=== PATIENT | female | born 2000 | race Two or more races ===

== ENCOUNTER 2024-08-18 23:16 | Emergency (ER) | payer BC, SELFPAY ==
[2024-08-18 23:26] VITALS: BP 132/84; PULSE 93; RESP 19; TEMP 36.7; O2SAT 97; BMI 44.6
--- NOTE | 2024-08-19 00:11 | PD.EDALLER ---
ED Allergic Reaction RME/HPI General Chief complaint: Allergic Reaction Stated complaint: Allergic reaction Time Seen by Provider: 08/18/24 23:36 Arrival date/time: 08/18/24 23:16 23 year old female present to emergency room with c/o of hives like rash upper, face and ears today. pt unsure of cause reaction. denies any new plants, animals, clothes, detergent , medication LOCATION: upper arm SEVERITY: Symptoms are described as being severe with limitations on activities of daily living QUALITY: Symptoms are described as being dull or achy CONTEXT: The patient is unable to identify any inciting events. DURATION/TIMING: The symptoms started approximately one day ago and have been constant this then, and have been progressive getting worse. ASSOCIATED SYMPTOMS: The patient is unable to identify any other associated symptoms. MODIFYING FACTORS: The patient is unable to identify any alleviating or aggravating symptoms. PERTINENT ROS: denies IVDU, states no immunocompromising condition, denies any penetrating trauma, no fever, no unexplained nausea or vomiting, no headache, no chest pain REVIEW OF SYSTEMS: See History of Present Illness - with the exception of those mentioned in the history of present illness, all other systems reviewed and reported as negative GENERAL: In general the patient is awake, interactive, in an emergency department gurney. HEAD/EYES/EARS/NOSE/THROAT: normo-cephalic, atraumatic, mucus membranes are moist, anicteric, palpebral conjunctiva is pink, trachea is midline. CARDIOVASCULAR: regular rate and regular rhythm, no murmurs, heart sounds are not distant, strong pulses in all four extremities that are equal and symmetric bilateral upper and lower extremities, normal capillary refill. CHEST/PULMONARY: normal chest rise and fall, good air movement, clear to auscultation bilaterally, normal inspiratory to expiratory ratios without evidence of respiratory distress. NECK: No midline/Paraspinal tenderness, no step off ROM/Strenght intact No Kernig and bruzinski sign. No trauma ABDOMEN: soft, not tender, no masses appreciated BACK: normal range of motion without pain. NEUROLOGICAL: cranio-facial features are symmetric, moves all four extremities equally without obvious limitations or weakness. EXTREMITY: no tenderness to palpation over the long bones or large joints of the bilateral upper and lower extremities, no joint swelling, no joint erythema, no signs of trauma, no unilateral leg swelling and no peripheral edema. SKIN: warm, dry, well-perfused, no jaundice, + hives upper arms noted. no telangiectasias or petechia. PSYCH: calm, cooperative, no evidence of psychosis or agitation Related Data Home Medications ?Medication ?Instructions ?Recorded ?Confirmed sulfamethoxazole 800 1 tab PO BID 02/09/19 02/09/19 mg-trimethoprim 160 mg tablet (Bactrim DS) Previous Rx's ?Medication ?Instructions ?Recorded doxycycline hyclate 100 mg tablet 100 mg PO BID #14 tabs 03/07/19 diphenhydramine HCl 25 mg capsule 25 mg PO TID PRN allergic reaction 08/19/24 (Benadryl) #30 caps methylprednisolone 4 mg tablets in 4 mg PO .as directed #21 tabs 08/19/24 a dose pack (Medrol (Francis)) Allergies Allergy/AdvReac Type Severity Reaction Status Date / Time No Known Allergies Allergy Verified 02/09/23 11:47 Course Course Course Narrative: Patient presenting with urticaria.? The inciting event was likely hives .? Patient provided predisone, Benadryl, pepcid? .? Following which, patient stated they felt improved.? Patient monitored for a period of 1 hours.? Discussed continuing benadryl treatments every?-6 hours.? Patient was prescribed an epipen.? Patient is to follow up with primary care provider to further discuss anaphylactic treatment and allergin testing as needed.? Return to clinic or emergency department urgently if new or worsening symptoms develop including oral swelling, difficulty breathing, chest pain, shortness of breath, worsening rash, headache, or other worrisome symptoms. ? ? Plan:?? Diphenhydramine?-25mg q4-6h PRN.? Prescribed Epinephrine?.3mg/0.3mL emergency injection syringe (Epipen) and educated Pt on indications for administration. Advised Pt on supportive therapies, including decreasing exposure to possible allergens, cold application, OTC ibuprofen as directed prn, and advancement of fluids as tolerated. Educated Pt on signs and symptoms of anaphylaxis and instructed her to report to ED should worrisome signs present.? Pt verbally expressed understanding and all questions were addressed to Pt's satisfaction. Quality Measures none Orders Category Date Time Status DiphenhydrAMINE [Benadryl] Med 08/19/24 00:10 Discontinued 25 mg PO X1 ONE Famotidine [Pepcid] Med 08/19/24 00:10 Discontinued 20 mg PO X1 ONE predniSONE Med 08/19/24 00:10 Discontinued 60 mg PO X1 ONE Vital Signs Vital signs: Vital Signs Temperature 98.1 F 08/18/24 23:26 Pulse Rate 93 08/18/24 23:26 Respiratory Rate 19 08/18/24 23:26 Blood Pressure 132/84 H 08/18/24 23:26 Pulse Oximetry (%) 97 08/18/24 23:26 Oxygen Delivery Method Room Air 08/18/24 23:26 Allergic Reaction Patient data External records reviewed:: None Clinical information provided by:: patient Social determinants that could affect healthcare access:: none Patient has the following chronic illnesses:: none How is presenting disease/condition affected by chronic disease/condition?: no chronic disease Evaluation data The following diagnostics were reviewed and interpreted by me:: other (specify) (none ) Lab and/or radiology exams considered but not ordered:: none Interpretation Summary: none Medications / Prescriptions Medications or Prescriptions considered but not ordered:: none Medication administrations:: Medication Administration History Discontinued Medications Diphenhydramine HCl (Diphenhydramine 25 Mg Capsule) 25 mg PO X1 ONE Stop: 08/19/24 00:11 Famotidine (Famotidine 20 Mg Tablet) 20 mg PO X1 ONE Stop: 08/19/24 00:11 Prednisone (Prednisone 20 Mg Tablet) 60 mg PO X1 ONE Stop: 08/19/24 00:11 as stated Consultations Consultation(s) initiated? (list below): No Diagnosis Most likely diagnosis given after review of the tests above:: hives Admission Indicated Admission indicated?: not indicated Admission Request Was there a request for admission?: No Disposition Plan Disposition Plan: Discharge Discharge Attestation Discharge Attestation: The patient and all family members were given an opportunity to ask questions and understood the discharge instructions. Discharge instructions specifically effects, indications for sooner follow up or return to the emergency department, and the expected course of current diagnosis. Patient condition: Stable Discharge Plan Plan Patient Disposition: HOME (Self Care) Prescriptions/Referrals Prescriptions/Med Rec: New methylprednisolone [Medrol (Francis)] 4 mg tablets,dose pack 4 mg PO .as directed Qty: 21 0RF diphenhydramine HCl [Benadryl] 25 mg capsule 25 mg PO TID PRN (Reason: allergic reaction) Qty: 30 0RF No Action doxycycline hyclate 100 mg tablet 100 mg PO BID Qty: 14 0RF sulfamethoxazole-trimethoprim [Bactrim DS] 800-160 mg Tablet 1 tab PO BID Problem List Clinical Impression: Urticaria Patient/Caregiver Discharge Instructions Education Materials: ED Hives (Adult) Print Language: Tajik Stand Alone Forms: Jazmine Award Info., Patient Portal Info Letter
[2024-08-19] MEDS: DiphenhydrAMINE 25 MG CAPSULE PO (00:19)
[2024-08-19] MEDS: FAMOTIDINE 20 MG TABLET PO (00:19)
[2024-08-19] MEDS: predniSONE 20 MG TABLET 60 MG PO (00:20)
== END 2024-08-19 00:32 | disposition home or self-care (01) ==
LOC: SERX 08-19 00:33
PROVIDERS: Emergency Provider Emergency Medicine; PCP Family Medicine
DX: L50.9 Urticaria, unspecified (principal)
CPT/HCPCS: 99283; J7512; A9270